=== PATIENT | male | born 1955 | race Native Hawaiian/Other Pacific Islander ===

== ENCOUNTER 2017-04-05 10:49 | Emergency (ER) | payer BC ==
[~2017-04-05] VITALS: Ht 185.4 cm; Wt 89.8 kg
[2017-04-05 13:13] LABS: PLATELET COUNT 201 K/uL (142-355)
[2017-04-05 13:18] LABS: POTASSIUM 3.7 mmol/L (3.6-5.2); SODIUM 132 mmol/L (136-145)
== END 2017-04-05 14:33 | disposition home or self-care (01) ==
LOC: ED 10:49
PROVIDERS: Specialist
DX: R11.2 Nausea with vomiting, unspecified (principal); E86.9 Volume depletion, unspecified
CPT/HCPCS: 36415; 80048; 85027; 96365; 96374; 99284; J2550

== ENCOUNTER 2020-07-17 11:33 | Outpatient (CLI) | payer BC ==
[2020-07-17 11:48] LABS: PLATELET COUNT 204 K/uL (142-355)
[2020-07-17 11:55] LABS: POTASSIUM 3.9 mmol/L (3.6-5.2)
== END 2020-07-17 21:15 | disposition home or self-care (01) ==
LOC: LAB 11:33
PROVIDERS: ATTEND Nurse Practitioner Family
DX: R10.13 Epigastric pain (principal)
CPT/HCPCS: 80053; 82150; 83690; 85027

== ENCOUNTER 2020-10-31 08:34 | Outpatient (CLI) | payer BC | END 2020-10-31 21:25 | disposition home or self-care (01) | LOC: RAD 08:34 | PROVIDERS: ATTEND Nurse Practitioner Family | DX: M79.605 Pain in left leg (principal); M25.551 Pain in right hip; M25.552 Pain in left hip; M25.562 Pain in left knee; M25.512 Pain in left shoulder ==

== ENCOUNTER 2021-01-07 08:56 | Outpatient (CLI) | payer BC ==
[2021-01-07 09:52] LABS: PLATELET COUNT 187 K/uL (142-355)
[2021-01-07 10:04] LABS: POTASSIUM 4.1 mmol/L (3.6-5.2)
== END 2021-01-07 20:12 | disposition home or self-care (01) ==
LOC: LABW 08:56
PROVIDERS: ATTEND Nurse Practitioner Family
DX: R79.81 Abnormal blood-gas level (principal)
CPT/HCPCS: 36415; 80053; 83880; 85027; 85379; 93005

== ENCOUNTER 2022-03-31 07:52 | Outpatient (CLI) | payer BC | END 2022-03-31 20:19 | disposition home or self-care (01) | LOC: RESP 07:52 | PROVIDERS: ATTEND Nurse Practitioner Family | DX: R00.0 Tachycardia, unspecified (principal) | CPT/HCPCS: 93005; 93225 ==

== ENCOUNTER 2022-08-28 07:27 | Outpatient (CLI) | payer BC | END 2022-08-28 17:00 | disposition home or self-care (01) | LOC: RAD 07:27 | PROVIDERS: ATTEND Nurse Practitioner Family | DX: M25.511 Pain in right shoulder (principal) ==

== ENCOUNTER 2022-12-10 07:45 | Outpatient (CLI) | payer BC | END 2022-12-10 21:17 | disposition home or self-care (01) | LOC: RAD 07:45 | PROVIDERS: ATTEND Nurse Practitioner Family | DX: M79.642 Pain in left hand (principal) ==